=== PATIENT | female | born 1980 | race Caucasian/White ===

== ENCOUNTER → 2020-06-09 | Outpatient (CLI) | payer OTHER ==
[~2020-06-09] MED LIST: CLARITIN 10MG T10 MG PO; CRESTOR40 MG PO; FENOFIBRATE160 MG PO; HYDROCODON-ACE1 EAC4 PO; KENALOG CREAM 015 GM TOP; MELOXICAM15 MG PO; SYNJARDY PO
[2020-06-09 11:51] LABS: HEMOGLOBIN 14.9 gm/dl (12.3-15.3); RED BLOOD COUNT 4.8 M/UL (4.00-5.10)
[2020-06-09 12:13] LABS: BUN/CREATININE RATIO 20 (0-10)
== END ==
LOC: OPSV2 11:00
PROVIDERS: Orthopaedic Surgery
DX: Z01.818 Encounter for other preprocedural examination (principal); G56.02 Carpal tunnel syndrome, left upper limb
CPT/HCPCS: 36415; 80048; 85025; 93005; J7030

== ENCOUNTER 2020-06-12 15:34 | Emergency (ER) | payer OTHER | END 2020-06-12 18:39 | disposition home or self-care (01) | LOC: ER1 15:34 | DX: G89.18 Other acute postprocedural pain (principal); M25.532 Pain in left wrist; E11.9 Type 2 diabetes mellitus without complications; Z79.84 Long term (current) use of oral hypoglycemic drugs | CPT/HCPCS: 99283 ==

== ENCOUNTER → 2020-06-12 | Day surgery (SDC) | payer OTHER | END | disposition home or self-care (01) | LOC: OR 05:58 | DX: G56.03 Carpal tunnel syndrome, bilateral upper limbs (principal); E11.9 Type 2 diabetes mellitus without complications; E78.5 Hyperlipidemia, unspecified; M19.90 Unspecified osteoarthritis, unspecified site; E66.01 Morbid (severe) obesity due to excess calories; Z79.1 Long term (current) use of non-steroidal anti-inflammatories (NSAID); Z87.891 Personal history of nicotine dependence | CPT/HCPCS: 82962; 99283; J1100; J1885; J2001; J2250; J2405; J2704; J3010; J7030; J7120 ==